=== PATIENT | female | born 1990 | race Two or more races ===

== ENCOUNTER 2024-10-02 02:14 | Emergency (ER) | payer BC, SELFPAY ==
[2024-10-02 02:14] VITALS: BMI 25.8
[2024-10-02 02:31] VITALS: BP 120/86; PULSE 127; RESP 22; TEMP 37.1; O2SAT 97
[2024-10-02 02:33] VITALS: BP 120/86; PULSE 123; RESP 17; TEMP 37.1; O2SAT 97
[2024-10-02 02:46] LABS: Collection Type, Urine Clean Catch
[2024-10-02 03:01] LABS: Bilirubin,Urine Negative (Negative); Blood,Urine 2+ (Negative); Clarity,Urine Clear (Clear/Hazy); Color,Urine Yellow (Lt Yel-Yel); Glucose, Urine Negative (Negative); Hyaline Casts,Urine 1 /hpf (0-1); Ketones,Urine Negative (Negative); Leukocyte Esterase,Urine Negative (Negative); Nitrite,Urine Negative (Negative); Protein,Urine 1+ (Neg - Trace); RBC,Urine 8 /hpf (0-3); Specific Gravity,Urine 1.031 (1.001-1.035); Squamous Epithelial Cell,Urine 5 /hpf (0-5); Urobilinogen,Urine Negative mg/dL (0.0-1.0); WBC,Urine 5 /hpf (0-5)
[2024-10-02 03:09] LABS: HCG Qualitative,Urine Negative
--- NOTE | 2024-10-02 03:18 | XR_ITS ---
Examination: Thoracic spine 3 views Technique one AP lateral coned lateral upper dorsal spine 3 views Exam date and time: October 02, 2024 0325 hrs. Indications: Upper back pain beginning 2 weeks ago. Findings: Thoracic dextroscoliosis 8 degrees Adequate bone density. No thoracic fracture or significant thoracic disc narrowing Impression: Thoracic dextroscoliosis 8 degrees
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
[2024-10-02] MEDS: KETOROLAC INJ 60 MG/2 ML VIAL 30 MG IM (04:05)
[2024-10-02 04:14] VITALS: BP 134/86; PULSE 91; RESP 16; O2SAT 99
== END 2024-10-02 04:14 | disposition home or self-care (01) ==
PROVIDERS: Emergency Provider Emergency Medicine; PCP Internal Medicine
DX: M54.9 Dorsalgia, unspecified (principal)
CPT/HCPCS: 72070; 81001; 81025; 96372; 99283; J1885

== ENCOUNTER → 2024-10-11 | Outpatient (CLI) | payer BC, SELFPAY ==
--- NOTE | 2024-10-11 16:37 | XR_ITS ---
Examination: Temporomandibular joints 5 views Exam date and time: October 11, 2024 1644 hrs. Indications: Jaw pain 2 months Findings: No fractures Cranial vault intact. Normal anterior translation of the mandibular condyles in the open-mouth position Impression: Normal anterior translation of the mandibular condyles in the open mouth position Consider MRI temporomandibular joints follow-up to assess for nondisplaced menisci
[2024-10-11 17:52] LABS: Alanine Aminotransferase 21 U/L (10-49); Albumin, Serum 4.7 gm/dL (3.5-5.0); Alkaline Phosphatase 65 U/L (46-116); Aspartate Amino Transferase 15 U/L (0-34); Bilirubin,Direct 0.1 mg/dL (0.0-0.3); Bilirubin,Total 0.3 mg/dL (0.3-1.2); Total Protein 7.4 gm/dL (5.7-8.2)
[2024-10-11 18:24] LABS: Syphilis Nonreactive (Nonreactive)
[2024-10-11 19:33] LABS: HIV (1&2) Antibody Rapid Non-Reactive
[2024-10-12 10:21] LABS: Chlamydia trachomatis PCR Negative (Not Detect); Neisseria Gonorrhoeae DNA PCR Negative (Not Detect); Trichomonas Negative (Negative)
== END | disposition home or self-care (01) ==
LOC: CDIM 16:45 → COPL 16:57
PROVIDERS: PCP Internal Medicine; Referring Provider Internal Medicine; Visit Provider Internal Medicine
DX: R68.84 Jaw pain (principal); A64 Unspecified sexually transmitted disease
CPT/HCPCS: 36415; 70330; 80076; 86703; 86780; 87491; 87591; 87661

== ENCOUNTER 2024-12-19 01:04 | Emergency (ER) | payer BC, SELFPAY ==
[2024-12-19 01:15] VITALS: BP 130/91; PULSE 110; RESP 18; TEMP 36.9; O2SAT 99; BMI 25.5
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
--- NOTE | 2024-12-19 01:36 | EKG_ITS ---
[facility] Test Date: 2024-12-19 Pat Name: MILADY GREWAL Department: Room: - Gender: Female Rn Outpatient Surgery: : 1990 Requested By: Sree Myers Order Number: [id number] Reading MD: Sree Myers Measurements Intervals [place] Rate: 106 P: 45 MT: 160 QRS: 3 QRSD: 79 T: 26 QT: 325 QTc: 431 Interpretive Statements SINUS TACHYCARDIA ABNORMAL RHYTHM ECG No previous ECG available for comparison /store/S0/[id number]/ecg/[id number].pdf
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
[2024-12-19 01:48] LABS: Collection Type, Urine Clean Catch
[2024-12-19 01:53] LABS: Lactate (Lactic Acid) 1.4 mMol/L (0.4-2.0)
[2024-12-19 01:58] LABS: Eosinophils % (Auto) 0 % (0-10); Mean Corpuscular HGB Conc 34.2 g/dl (31.0-37.0); Nucleated Red Blood Cell % 0 /100 WBC (0)
[2024-12-19 02:02] VITALS: PULSE 103
[2024-12-19] MEDS: fentaNYL CIT INJ 50 mCg/ML AMP 2ML 100 MCG IVP (02:05)
[2024-12-19] MEDS: ONDANSETRON INJ 2 MG/ML INJ 2 ML 4 MG IV (02:05)
[2024-12-19] MEDS: SODIUM CHLORIDE 0.9% 1000 ML 1,000 ML 999 ML IV (02:06)
[2024-12-19 02:07] LABS: Prothrombin Time 10.9 Seconds (9.0-12.2)
[2024-12-19 02:12] LABS: Amphetamine/Methamp Scrn,U Negative (Negative); Barbiturate Screen,Urine Negative (Negative); Benzodiazepines Screen,Urine Negative (Negative); Benzoylecgonine Screen, Ur Positive (Negative); Fentanyl Screen,Urine Negative (Negative); Opiate Screen,Urine Negative (Negative); THC Screen,Urine Negative (Negative)
[2024-12-19 02:14] LABS: Basophils % (Auto) 0 % (0-2.5); Hematocrit 34.5 % (36.0-46.0); Hemoglobin 11.8 g/dL (12.0-16.0); Immature Granulocytes % (Auto) 0 % (0-0); Immature Granulocytes Auto 0.07 Thou/mm3 (0.00-0.00); Lymphocytes # (Auto) 2.2 Thou/mm3 (1.0-4.8); Lymphocytes % (Auto) 13 % (10-50); Mean Corpuscular Volume 85 fL (80-100); Monocytes # (Auto) 0.9 Thou/mm3 (0.0-0.8); Monocytes % (Auto) 5 % (0-12); Neutrophils # (Auto) 13.5 Thou/mm3 (1.8-7.7); Neutrophils % (Auto) 81 % (37-80); Platelet Count 294 Thou/mm3 (140-440); RDW Standard Deviation 44.1 fL (36.4-46.3); Red Blood Count 4.07 Miln/mm3 (4.00-5.20); White Blood Count 16.7 Thou/mm3 (3.6-11.0)
[2024-12-19 02:14] LABS: Bilirubin,Urine Negative (Negative); Blood,Urine Negative (Negative); Clarity,Urine Clear (Clear/Hazy); Color,Urine Lt-Yellow (Lt Yel-Yel); Glucose, Urine Negative (Negative); Hyaline Casts,Urine < 1 /hpf (0-1); Ketones,Urine Trace (Negative); Leukocyte Esterase,Urine Negative (Negative); Nitrite,Urine Negative (Negative); Protein,Urine Trace (Neg - Trace); RBC,Urine 4 /hpf (0-3); Specific Gravity,Urine 1.031 (1.001-1.035); Squamous Epithelial Cell,Urine 4 /hpf (0-5); Urobilinogen,Urine Negative mg/dL (0.0-1.0); WBC,Urine 4 /hpf (0-5)
[2024-12-19 02:20] LABS: Alanine Aminotransferase 25 U/L (10-49); Albumin, Serum 4.3 gm/dL (3.5-5.0); Albumin/Globulin Ratio 1.4 (1.2-2.2); Alkaline Phosphatase 60 U/L (46-116); Anion Gap 9 (7-16); Aspartate Amino Transferase 20 U/L (0-34); BUN/Creatinine Ratio 14 Ratio (12-20); Bilirubin,Total 0.4 mg/dL (0.3-1.2); Blood Urea Nitrogen 14 mg/dL (9-23); Calcium 8.8 mg/dL (8.3-10.6); Calcium (Corrected) 8.8 mg/dL (8.5-10.1); Carbon Dioxide 22.6 mMol/L (20.0-31.0); Chloride 109 mMol/L (98-107); Creatine Kinase 71 U/L (34-171); Estimated Creatinine Clearance 84.9 mL/min (>60); Glucose 119 mg/dL (74-106); Lipase 54 U/L (12-53); Osmolality,Calculated 282 (275-295); Sodium 141 mMol/L (136-145); Total Protein 7.3 gm/dL (5.7-8.2); Troponin I < 0.002 ng/mL (0.0-0.045); eGFR > 60 See Note
[2024-12-19 02:21] LABS: Alcohol, Blood Medical < 3.0 mg/dL (0-10.0)
[2024-12-19 02:37] LABS: HCG Qualitative,Urine Negative
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
--- NOTE | 2024-12-19 03:32 | PRELIM_ITS ---
CT scan of the head without intravenous contrast (axial sections with sagittal and coronal reformats). December 19, 2024 0303 hours Clinical History: Headache Comparison: None Findings: There is no intracranial hemorrhage, extra-axial collection, mass, mass-effect or midline shift. There is good clayton-white differentiation. There is no CT evidence of acute large vascular territorial infarct. Ventricles are not enlarged or effaced. There is a patulous sella turcica with empty sella configuration. Visualized paranasal sinuses and tympanomastoid cavities are clear. The bony calvarium is intact. Impression: No intracranial hemorrhage, mass-effect or midline shift. No CT evidence of acute large vascular territorial infarct. Report Electronically Signed By: Satish Escobar 12/19/2024 3:31:55 AM [EST]
--- NOTE | 2024-12-19 03:39 | PRELIM_ITS ---
CT scan of the cervical spine without intravenous contrast (axial sections with sagittal and coronal reformats). December 19, 2024 0303 hours Clinical History: Pain Comparison: None Findings: There is no fracture, traumatic subluxation or other acute osseous abnormality of the cervical spine. There is straightening of the cervical spine. The prevertebral soft tissues are unremarkable. Impression: No acute osseous abnormality of the cervical spine. Straightening of the cervical spine may indicate muscle spasm. Report Electronically Signed By: Satish Escobar 12/19/2024 3:38:14 AM [EST]
--- NOTE | 2024-12-19 03:48 | PRELIM_ITS ---
CT scan of the chest, abdomen and pelvis with intravenous contrast (axial sections with sagittal and coronal reformats). December 19, 2024 0307 hours Clinical History: Abdominal and chest pain Comparison: None Findings: Chest: Heart is normal in size. There is no pericardial or pleural fluid. There is no acute traumatic aortic injury. There is no mediastinal hematoma. Thyroid is unremarkable. There is no thoracic lymphadenopathy. There is dependent subsegmental atelectasis in the lungs. There is no pneumothorax. There is no acute osseous abnormality. Abdomen/pelvis: The gallbladder is surgically absent. The liver, spleen, pancreas, adrenals and kidneys are unremarkable. Urinary bladder is of normal partially filled configuration. Few bilateral ovarian follicles noted. Otherwise reproductive organs are unremarkable. There are pelvic phleboliths. There is some ingested material within the stomach. There are colonic diverticula without evidence of diverticulitis. Appendix is normal. There is no free intraperitoneal air or fluid. There is no abdominal or pelvic lymphadenopathy. There is no acute osseous abnormality. Impression: No acute visceral or osseous injury within the chest, abdomen or pelvis. Report Electronically Signed By: Satish Escobar 12/19/2024 3:47:45 AM [EST]
[2024-12-19] MEDS: fentaNYL CIT INJ 50 mCg/ML AMP 2ML IVP (04:02)
== END 2024-12-19 04:59 | disposition home or self-care (01) ==
PROVIDERS: Emergency Provider Emergency Medicine; PCP Internal Medicine
DX: S39.012A Strain of muscle, fascia and tendon of lower back, initial encounter (principal); S16.1XXA Strain of muscle, fascia and tendon at neck level, initial encounter; S40.211A Abrasion of right shoulder, initial encounter; S30.810A Abrasion of lower back and pelvis, initial encounter; S20.319A Abrasion of unspecified front wall of thorax, initial encounter; S80.211A Abrasion, right knee, initial encounter; S40.011A Contusion of right shoulder, initial encounter; S40.012A Contusion of left shoulder, initial encounter; S80.12XA Contusion of left lower leg, initial encounter; S80.11XA Contusion of right lower leg, initial encounter; S90.32XA Contusion of left foot, initial encounter; V49.9XXA Car occupant (driver) (passenger) injured in unspecified traffic accident, initial encounter; R00.0 Tachycardia, unspecified
CPT/HCPCS: 36415; 70450; 71260; 72125; 73030; 74177; 80053; 80307; 80320; 81001; 81025; 82550; 83605; 83690; 84484; 85025; 85610; 93005; 96361; 96374; 96375; 99285; A4649; J2405; J3010; J7030; Q9967; G0480

== ENCOUNTER → 2025-06-07 | Outpatient (CLI) | payer BC, SELFPAY ==
[2025-06-07 12:20] LABS: HCG,Qualitative Serum Negative
[2025-06-07 12:28] LABS: Alanine Aminotransferase 12 U/L (10-49); Albumin, Serum 4.8 gm/dL (3.5-5.0); Alkaline Phosphatase 71 U/L (46-116); Anion Gap 9 (7-16); Aspartate Amino Transferase 16 U/L (0-34); BUN/Creatinine Ratio 10 Ratio (12-20); Bilirubin,Direct 0.2 mg/dL (0.0-0.3); Bilirubin,Total 0.6 mg/dL (0.3-1.2); Blood Urea Nitrogen 9 mg/dL (9-23); Calcium 9.5 mg/dL (8.3-10.6); Carbon Dioxide 24.3 mMol/L (20.0-31.0); Chloride 108 mMol/L (98-107); Creatinine (Component) 0.9 mg/dL (0.6-1.3); Glucose 91 mg/dL (74-106); Osmolality,Calculated 279 (275-295); Phosphorous 4.0 mg/dL (2.4-5.1); Potassium 4.0 mMol/L (3.4-5.1); Sodium 141 mMol/L (136-145); Total Protein 7.1 gm/dL (5.7-8.2); eGFR > 60 See Note
[2025-06-07 12:45] LABS: Syphilis Nonreactive (Nonreactive)
[2025-06-07 13:28] LABS: HIV (1&2) Antibody Rapid Non-Reactive
[2025-06-07 14:47] LABS: Chlamydia trachomatis PCR Negative (Not Detect); Neisseria Gonorrhoeae DNA PCR Negative (Not Detect); Trichomonas Negative (Negative)
== END | disposition home or self-care (01) ==
LOC: COPL 11:25
PROVIDERS: PCP Internal Medicine; Referring Provider Internal Medicine; Visit Provider Internal Medicine
DX: R94.5 Abnormal results of liver function studies (principal); A74.9 Chlamydial infection, unspecified
CPT/HCPCS: 36415; 80048; 80069; 80076; 84100; 84703; 86703; 86780; 87491; 87591; 87661

== ENCOUNTER 2025-07-09 19:15 | Emergency (ER) | payer BC, SELFPAY ==
[2025-07-09 19:16] VITALS: BMI 23.6
[2025-07-09 19:27] VITALS: BP 118/77; PULSE 100; RESP 18; TEMP 37.1; O2SAT 100
--- NOTE | 2025-07-09 19:44 | XR_ITS ---
Examination: Complete OB ultrasound, less than 14 weeks, transabdominal Date and time of exam: July 09, 2025, 210 hours INDICATIONS: Vaginal bleeding 2 weeks, pelvic cramping today, positive test today Technique: Obstetrical ultrasound images less than 14 weeks performed via transabdominal imaging Findings: Uterus 8.6 cm no intrauterine gestation or retained products of conception Right ovary 3.9 cm arterial flow Left ovary obscured by bowel gas IMPRESSION: No uterine mass or retained products of conception.
[2025-07-09 20:15] LABS: Basophils # (Auto) 0.0 Thou/mm3 (0.0-0.2); Basophils % (Auto) 1 % (0-2.5); Eosinophils # (Auto) 0.1 Thou/mm3 (0.0-0.5); Eosinophils % (Auto) 1 % (0-10); Hematocrit 42.7 % (36.0-46.0); Hemoglobin 13.9 g/dL (12.0-16.0); Immature Granulocytes Auto 0.03 Thou/mm3 (0.00-0.00); Lymphocytes # (Auto) 3.0 Thou/mm3 (1.0-4.8); Lymphocytes % (Auto) 35 % (10-50); Mean Corpuscular HGB Conc 32.6 g/dl (31.0-37.0); Mean Corpuscular Hemoglobin 27.5 pg (25.0-35.0); Mean Corpuscular Volume 85 fL (80-100); Monocytes # (Auto) 0.5 Thou/mm3 (0.0-0.8); Monocytes % (Auto) 6 % (0-12); Neutrophils # (Auto) 5.1 Thou/mm3 (1.8-7.7); Neutrophils % (Auto) 58 % (37-80); Nucleated Red Blood Cell # 0.00 Thou/mm3 (0.00-0.00); Nucleated Red Blood Cell % 0 /100 WBC (0); Platelet Count 378 Thou/mm3 (140-440); RDW Standard Deviation 38.1 fL (36.4-46.3); Red Blood Count 5.05 Miln/mm3 (4.00-5.20); White Blood Count 8.8 Thou/mm3 (3.6-11.0)
--- NOTE | 2025-07-09 20:17 | PD.EDRME ---
Rapid Medical Screening Exam RME Arrival date/time: 07/09/25 19:15 This is a case of 34-year-old female with no medical history came into the emergency room due to pelvic pain and vaginal bleeding patient states that she took test and it was positive worsening of the symptoms this patient decided to start consult her in the emergency room Chief Complaint: Vaginal Bleeding Time Seen by Provider: 07/09/25 19:18 Vital signs: Vital Signs Temperature 98.7 F 07/09/25 19:27 Pulse Rate 100 07/09/25 19:27 Respiratory Rate 18 07/09/25 19:27 Blood Pressure 118/77 07/09/25 19:27 Pulse Oximetry (%) 100 07/09/25 19:27 Oxygen Delivery Method Room Air 07/09/25 19:27 Exam: Mild tenderness on the suprapubic area no guarding no rebound no rigidity Clinical Impression: Pelvic cramping vaginal bleeding in
[2025-07-09 20:54] LABS: Alanine Aminotransferase 15 U/L (10-49); Albumin, Serum 5.0 gm/dL (3.5-5.0); Albumin/Globulin Ratio 1.5 (1.2-2.2); Alkaline Phosphatase 84 U/L (46-116); Anion Gap 11 (7-16); Aspartate Amino Transferase 18 U/L (0-34); BUN/Creatinine Ratio 10 Ratio (12-20); Beta HCG,Quantitative < 1 mIU/mL (<5.0); Bilirubin,Total 0.4 mg/dL (0.3-1.2); Blood Urea Nitrogen 10 mg/dL (9-23); Calcium 10.1 mg/dL (8.3-10.6); Calcium (Corrected) 10.1 mg/dL (8.5-10.1); Carbon Dioxide 25.5 mMol/L (20.0-31.0); Chloride 104 mMol/L (98-107); Creatinine (Component) 1.0 mg/dL (0.6-1.3); Estimated Creatinine Clearance 81.5 mL/min (>60); Globulin 3.3 gm/dL (2.3-3.5); Glucose 111 mg/dL (74-106); Osmolality,Calculated 279 (275-295); Potassium 3.9 mMol/L (3.4-5.1); Sodium 140 mMol/L (136-145); Total Protein 8.3 gm/dL (5.7-8.2); eGFR > 60 See Note
[2025-07-09 21:15] LABS: Collection Type, Urine Voided
[2025-07-09 21:29] LABS: Bilirubin,Urine Negative (Negative); Blood,Urine 3+ (Negative); Calcium Oxalate Crystals,Urine 2+; Clarity,Urine Turbid (Clear/Hazy); Color,Urine Yellow (Lt Yel-Yel); Glucose, Urine Negative (Negative); Ketones,Urine Negative (Negative); Leukocyte Esterase,Urine Negative (Negative); Nitrite,Urine Negative (Negative); PH,Urine 5.5 (5.0-7.0); Protein,Urine Trace (Neg - Trace); RBC,Urine 8 /hpf (0-3); Specific Gravity,Urine 1.026 (1.001-1.035); Squamous Epithelial Cell,Urine 10 /hpf (0-5); Urobilinogen,Urine Negative mg/dL (0.0-1.0); WBC,Urine 3 /hpf (0-5)
--- NOTE | 2025-07-09 21:31 | PD.EDVAGBL ---
ED OB Contraction Preg RMI/HPI General Chief complaint: Vaginal Bleeding Stated complaint: HEAVY VAGINAL BLEEDING X2 WEEKS Time Seen by Provider: 07/09/25 19:18 Arrival date/time: 07/09/25 19:15 Limitations: no limitations RME / HPI RME / HPI Narrative: 07/09/25 19:15 This is a case of 34-year-old female with no medical history came into the emergency room due to pelvic pain and vaginal bleeding patient states that she took test and it was positive worsening of the symptoms this patient decided to start consult her in the emergency room. States has been bleeding since June 25. Has not had a chance to go to her doctor due to working long hours. No history of thyroid disorder. Soaking 5 pads a day. No history of similar. Patient has been on Depo-Provera for 1 year. Due for new shot in less than 30 days Exam: Mild tenderness on the suprapubic area no guarding no rebound no rigidity Impression: Pelvic cramping vaginal bleeding in Related Data Home Medications ?Medication ?Instructions ?Recorded ?Confirmed [id number]-Ol-gmos-minerals 1 tab PO DAILY 06/10/18 06/11/18 (Multiple Vitamin, Womens tablet) omeprazole 40 mg capsule,delayed 40 mg PO QDAY 06/10/18 06/11/18 release ondansetron HCl 4 mg tablet 4 mg PO TID PRN Nausea And Vomiting 06/10/18 06/11/18 (Zofran) Previous Rx's ?Medication ?Instructions ?Recorded ibuprofen 800 mg tablet 800 mg PO TID PRN pain #30 tabs 10/02/24 hydrocodone 5 mg-acetaminophen 325 1 tab PO Q6H PRN pain #14 tabs 12/19/24 mg tablet ibuprofen 600 mg tablet 600 mg PO Q6H PRN pain #20 tabs 12/19/24 mupirocin 2 % topical ointment 1 applic topical BID Multiple 12/19/24 abrasions #50 grams medroxyprogesterone 10 mg tablet 10 mg PO QDAY #10 tabs 07/09/25 (Provera) Allergies Allergy/AdvReac Type Severity Reaction Status Date / Time No Known Allergies Allergy Verified 06/11/18 12:22 Review of Systems Review of Systems Systems Reviewed: All systems reviewed, normal except as documented Constitutional Constitutional: Denies fever(s) Gastrointestinal Gastrointestinal: Reports as per HPI Genitourinary Genitourinary: Reports as per [facility] ED Exam General Limitations: Present no limitations General appearance: Present alert and in no apparent distress Eye Eye exam: Present normal appearance, PERRL and EOMI Respiratory Respiratory exam: Present normal lung sounds bilaterally Cardiovascular Cardiovascular exam: Present regular rate, normal rhythm and normal heart sounds Abdominal Exam Abdominal exam: Present soft and normal bowel sounds External exam: Present other (declined gu exam ) Extremities Exam Extremities exam: Present normal inspection and full ROM Back Exam Back exam: Present normal inspection and full ROM Skin Skin exam: Present warm, dry, intact and normal color Course Quality Measures none Orders Category Date Time Status US OB <= 14 weeks fetus Stat Exams 07/09/25 19:44 Completed ABO/RH Type Stat Lab 07/09/25 20:03 Completed Beta HCG,Quantitative Stat Lab 07/09/25 20:03 Completed CBC Stat Lab 07/09/25 20:03 Completed CMP [Comprehensive Metabolic Panel] Stat Lab 07/09/25 20:03 Completed Urinalysis Stat Lab 07/09/25 20:38 Completed Vital Signs Vital signs: Vital Signs Temperature 98.7 F 07/09/25 19:27 Pulse Rate 100 07/09/25 19:27 Respiratory Rate 18 07/09/25 19:27 Blood Pressure 118/77 07/09/25 19:27 Pulse Oximetry (%) 100 07/09/25 19:27 Oxygen Delivery Method Room Air 07/09/25 19:27 Vaginal Bleeding Patient data External records reviewed:: [facility] previous records Clinical information provided by:: patient Social determinants that could affect healthcare access:: other (specify) (Working long hours unable to follow with PCP) Patient has the following chronic illnesses:: None How is presenting disease/condition affected by chronic disease/condition?: no chronic disease Evaluation data The following diagnostics were reviewed and interpreted by me:: lab results and radiology exam(s) Lab and/or radiology exams considered but not ordered:: CT abdomen pelvis was also considered however unlikely to change the course of treatment today. Interpretation Summary: Quant less than 1 consistent with not CBC and CMP within normal limits UA with contamination from vaginal bleeding Rh- however not does not change course of treatment today Ultrasound appears normal Medications / Prescriptions Medications or Prescriptions considered but not ordered:: TXA was considered for bleeding does not appear to be that severe Medication administrations:: none here Consultations Consultation(s) initiated? (list below): No Diagnosis Vaginal Bleeding Differential Diagnosis: threatened , dysfunctional uterine bleeding, menometrorrhagia, ectopic without intrauterine , vaginal bleeding and other (fibroid, thyroid condition ) Most likely diagnosis given after review of the tests above:: dysmenorrhea Admission Indicated Admission indicated?: not indicated Admission Request Was there a request for admission?: No Disposition Plan Disposition Plan: Discharge Discharge Attestation Discharge Attestation: The patient and all family members were given an opportunity to ask questions and understood the discharge instructions. Discharge instructions specifically effects, indications for sooner follow up or return to the emergency department, and the expected course of current diagnosis. Patient condition: Stable Discharge Plan Plan Patient Disposition: HOME (Self Care) Discharge Disposition comment: f/u in 2-3days Prescriptions/Referrals Prescriptions/Med Rec: New medroxyprogesterone [Provera] 10 mg tablet 10 mg PO QDAY Qty: 10 0RF No Action ondansetron HCl [Zofran] 4 mg Tablet 4 mg PO TID PRN (Reason: Nausea And Vomiting) omeprazole 40 mg Capsule,Delayed Release(Dr/Ec) 40 mg PO QDAY [id number]-minerals [Multiple Vitamin, Womens] Tablet 1 tab PO DAILY ibuprofen 800 mg tablet 800 mg PO TID PRN (Reason: pain) Qty: 30 0RF hydrocodone-acetaminophen 5-325 mg tablet 1 tab PO Q6H MDD 4 tabs PRN (Reason: pain) Qty: 14 0RF ibuprofen 600 mg tablet 600 mg PO Q6H PRN (Reason: pain) Qty: 20 0RF mupirocin 2 % ointment 1 applic topical BID Qty: 50 0RF Referrals: No Primary/Family,Physician [Primary Care Provider] - In 1 week Problem List Clinical Impression: Dysmenorrhea, Menometrorrhagia Patient/Caregiver Discharge Instructions Education Materials: ED Dysfunctional Uterine Bleeding Print Language: Chinese Stand Alone Forms: Bryanna Award Info., Patient Portal Info Letter PA/CERTIFIED PUBLIC ACCOUNTANT Supervising Physician PA/CERTIFIED PUBLIC ACCOUNTANT Supervising Physician: Dr. Shanks
[2025-07-09 23:02] VITALS: BP 119/81; PULSE 81; RESP 16; TEMP 36.8; O2SAT 98
== END 2025-07-09 23:03 | disposition home or self-care (01) ==
PROVIDERS: Nurse Practitioner Family; Emergency Provider Emergency Medicine
DX: N92.1 Excessive and frequent menstruation with irregular cycle (principal); N94.6 Dysmenorrhea, unspecified
CPT/HCPCS: 36415; 76801; 80053; 81001; 84702; 85025; 86900; 86901; 99283